=== PATIENT | female | born 1940 | race Caucasian/White ===

== ENCOUNTER 2017-02-19 13:02 | Emergency (ER) | payer MEDICARE ==
[2017-02-19 13:36] LABS: #Basophils 0.1 thou/uL (0.0-0.2); #Eosinphils 0.2 thou/uL (0.0-0.7); #Lymphocytes 1.6 thou/uL (1.20-3.40); #Monocytes 0.5 thou/uL (0.11-0.59); #Neutrophils 5.5 thou/uL (1.40-6.50); %Basophils 1.7 % (0.0-1.0); %Eosinophils 1.9 % (0.0-10.0); %Lymphocytes 20.1 % (21.0-51.0); %Monocytes 6.2 % (0.0-10.0); %Neutrophils 70.2 % (42.0-75.0); Hemoglobin 12.2 g/dL (12.0-16.0); Mean Corpuscular HGB CONC 32.2 g/dL (32.0-36.0); Mean Corpuscular Hemoglobin 30.3 pg (27.0-31.0); Platelet Count 286 thou/uL (130-400); RBC Distribution Width 12.5 % (11.5-14.5); Red Blood Cell (RBC) Count 4.01 mill/uL (4.20-5.40); White Blood Cell (WBC) Count 7.9 thou/uL (4.8-10.8)
[2017-02-19 13:36] LABS: Bilirubin Negative (Negative); Blood, Urine Trace (Negative); Clarity Clear (Clear); Glucose, Urine (Dipstick) >=1000 mg/dL (Negative); Leukocyte Trace (Negative); Nitrite Negative (Negative); Protein, Urine (Dipstick) Negative (Neg-Trace); Urobilinogen 0.2 mg/dL (0.2-1.0)
[2017-02-19 13:38] LABS: Specific Gravity, Urine 1.014 (1.002-1.036)
[2017-02-19 13:43] LABS: Bacteria/HPF Rare-Few HPF (None Seen); RBC/HPF None Seen HPF (0-3); Squamous Epithelial 0-3 HPF (0-3); WBC/HPF 0-3 HPF (0-3)
[2017-02-19 13:47] LABS: ALT (SGPT) 9 U/L (8-55); AST (SGOT) 13 U/L (5-34); Albumin 3.8 g/dL (3.4-4.8); Alkaline Phosphatase 81 U/L (40-150); Anion Gap 18 mmol/L (10-20); BUN (Urea Nitrogen) 49 mg/dL (9.8-20.1); Bilirubin, Total 0.6 mg/dL (0.2-1.2); Calc. Creatinine Clearance 0 mL/min (70-130); Calcium 9.2 mg/dL (7.8-10.44); Carbon Dioxide 16 mmol/L (23-31); Chloride 99 mmol/L (98-107); Estimated GFR-MDRD 19; Globulin 3.3 g/dL (2.4-3.5); Glucose 527 mg/dL (83-110); Magnesium 2.2 mg/dL (1.6-2.6); Protein, Total 7.1 g/dL (6.0-8.3); Sodium 127 mmol/L (136-145)
[2017-02-19] MEDS ORDERED: Insulin Regular 300 UNITS/3 ML VIAL ONE (14:02)
== END 2017-02-19 15:21 | disposition short-term general hospital (02) ==
LOC: NAV ERS 13:02
DX: E87.5 Hyperkalemia (principal); E11.10 Type 2 diabetes mellitus with ketoacidosis without coma; N28.9 Disorder of kidney and ureter, unspecified; Z79.84 Long term (current) use of oral hypoglycemic drugs
CPT/HCPCS: 36415; 36416; 80053; 81003; 81015; 83735; 85025; 93005; 96361; 96374; J1815

== ENCOUNTER 2018-07-21 21:01 | Emergency (ER) | payer MEDICARE ==
--- NOTE | 2018-07-21 21:40 | RAD ---
RIGHT ANKLE 3 VIEWS: HISTORY: Injury, right ankle pain FINDINGS: The ankle mortise is maintained. No acute fracture or dislocation is identified.
--- NOTE | 2018-07-21 22:13 | RAD ---
RIGHT RIBS TWO VIEWS PA CHEST: History: Tripped over rug. Trauma. Fall. Comparison: Radiograph of the chest, 02-19-17 FINDINGS: Lungs are hypoinflated with vascular crowding. There are atelectatic changes in both lung bases. Old left proximal humerus fracture. There is accentuation of the cardiac silhouette due to lung hypoi nflation. No acute displaced rib fracture is appreciated. IMPRESSION: No acute displaced rib fracture. POS: HOME
[2018-07-21] MEDS ORDERED: traMADol HCl 50 MG TAB ONE (22:14)
== END 2018-07-21 22:25 | disposition home or self-care (01) ==
LOC: NAV ERS 21:01
DX: S23.41XA Sprain of ribs, initial encounter (principal); S93.401A Sprain of unspecified ligament of right ankle, initial encounter; M81.0 Age-related osteoporosis without current pathological fracture; E78.2 Mixed hyperlipidemia; I50.9 Heart failure, unspecified; D64.9 Anemia, unspecified; N18.4 Chronic kidney disease, stage 4 (severe); E11.22 Type 2 diabetes mellitus with diabetic chronic kidney disease; Z79.899 Other long term (current) drug therapy; W18.30XA Fall on same level, unspecified, initial encounter